=== PATIENT | female | born 1960 | race American Indian/Alaskan Native ===

== ENCOUNTER 2018-08-14 08:53 | Day surgery (SDC) | payer OTHER ==
--- NOTE | 2018-08-14 09:42 | Anesthesia Consultation ---
Anesthesia Consult and Med Hx Date of service: 08/14/18 - Airway Anesthetic Teeth Evaluation: Good ROM Head & Neck: Adequate Mental/Hyoid Distance: Adequate Mallampati Class: Class I Intubation Access Assessment: Good - Pulmonary Exam CTA: Yes - Cardiac Exam Cardiac Exam: RRR - Pre-Operative Health Status ASA Pre-Surgery Classification: ASA3 Proposed Anesthetic Plan: MAC - Pulmonary Hx Sleep Apnea: Yes - Cardiovascular System Hx Hypertension: Yes - Other Systems Hx Obesity: Yes
--- NOTE | 2018-08-14 09:43 | Anesthesia Day of Surgery ---
Anesthesia Day of Surgery - Day of Surgery Patient Examined: Yes Patient H&P Reviewed: Yes Patient is NPO: Yes
[2018-08-14] MEDS ORDERED: NACL 0.9% 1000 ML 1,000 ML IV SCH (10:00)
[2018-08-14] MEDS ORDERED: DIPRIVAN 10 MG/ML IV ONE ×2 (13:34)
[2018-08-14] MEDS ORDERED: WATER FOR IRRIG STERILE IR ONE (13:35)
--- NOTE | 2018-08-14 13:50 | Operative Report ---
Operative Report Operative Report: Date of procedure: 08/14/2018 Procedure: Colonoscopy. Attending physician: Ritesh Sexton MD Streetcar Repairer: Ritesh Sexton MD Indication: Patient is a 57-year-old female who presents for screening colonoscopy. A colonoscopy serves to evaluate patient so that treatment may be directed based on the findings. Consent: Informed consent was obtained after advising the patient and family regarding nature of this procedure, its indications, potential benefits as well as possible complications including but not limited to bleeding perforation and adverse reaction to medication, infection as well as other cardiopulmonary complications. An informed written and verbal consent was then obtained after due opportunity was provided for questions and answers. Monitoring: Patient was monitored continuously with pulse oximetry and electrocardiographic recordings as well as blood pressure recordings. Vital signs remained stable throughout this procedure with no untoward events. Preoperative assessment: Patient was assessed immediately prior to this procedure for capacity to tolerate monitored anesthesia care and moderate sedation as well as general anesthesia. Patient's ASA classification is 2, Mallampati class is 2, Hyomental distance is 3. Instrument: [employer] video colonoscope Medications: Propofol given intravenously in divided doses. For details please refer to anesthesia records. Description of procedure: Patient was placed in the left lateral decubitus position after achieving sedation, a digital rectal examination was performed following which the colonoscope was introduced into the anal verge and advanced to the cecum which was identified by the cecal valve, the appendiceal orifice, as well as by the cecal strap and direct transillumination. The colonoscope was subsequently withdrawn with careful inspection of all mucosal surfaces. Patient tolerated this procedure well and was subsequently taken to the recovery room. The following findings were noted. Findings: Patient has retained liquid stool in sections of the colon particularly in the ascending colon cecum and in the descending colon. There was scattered diverticula seen in the sigmoid colon and descending colon. On the retroflex view at the anal verge, patient had prominent internal hemorrhoids. Impression: Retained stool Diverticular disease of the colon. Prominent Internal hemorrhoids. Plan: High-fiber diet. Prn stool softeners as needed. Repeat colonoscopy in 10 years.
[2018-08-14 14:50] VITALS: BP 120/62
== END 2018-08-14 14:50 | disposition home or self-care (01) ==
LOC: GIO 08:53
PROVIDERS: ATTEND Internal Medicine Gastroenterology
DX: Z12.11 Encounter for screening for malignant neoplasm of colon (principal); K57.30 Diverticulosis of large intestine without perforation or abscess without bleeding; K64.8 Other hemorrhoids; I10 Essential (primary) hypertension; G47.30 Sleep apnea, unspecified; E66.9 Obesity, unspecified; Z68.41 Body mass index [BMI] 40.0-44.9, adult; Z98.891 History of uterine scar from previous surgery; Z87.891 Personal history of nicotine dependence; Z90.49 Acquired absence of other specified parts of digestive tract; Z98.890 Other specified postprocedural states
CPT/HCPCS: 45378; J2704; J7030